=== PATIENT | female | born 1925 | race African-American/Black ===

== ENCOUNTER → 2017-03-11 | Outpatient (CLI) | payer MEDICARE, BC ==
[~2017-03-11] MED LIST: AMLO5TAB4 PO; ATOR20TA65 PO; DRON400T PO; EVIS60 PO; FERR1TAB25 PO; MAGN400C PO; MAGNESIUM OXIDE PO; MG; MULT-1116 PO; SIMV20TA6 PO
[2017-03-11 16:11] LABS: BG BASE EXCESS 4.3 mmol/L (-2.0-2.0); BG CARBOXYHEMOGLOBIN 1.3 % (0.5-1.5); BG DEOXYHEMOGLOBIN 17.9 % (0.0-5.0); BG FRACTION INSPIRED OXYGEN 21; BG HCO3 ACT 28.9 mmol/L (22.0-26.0); BG METHEMOGLOBIN 0.2 % (0.0-1.5); BG OXYGEN SATURATION 81.8 % (92.0-98.5); BG OXYHEMOGLOBIN 80.6 % (94.0-97.0); BG PCO2 42.9 mmHg (35.0-45.0); BG PH 7.446 (7.350-7.450); BG PO2 48.5 mmHg (75.0-100.0); BG SAMPLE SITE RIGHT BRACHIAL; BG TOTAL HEMOGLOBIN 14.4 g/dL (12.0-18.0); BG VENT MODE ROOM AIR
== END | disposition home or self-care (01) ==
LOC: PF 15:15
PROVIDERS: ATTEND Internal Medicine Pulmonary Disease
DX: J44.9 Chronic obstructive pulmonary disease, unspecified (principal)
CPT/HCPCS: 36600; 82375; 82805

== ENCOUNTER 2017-06-05 14:52 | Inpatient (IN) | payer MEDICARE, BC ==
[~2017-06-05] VITALS: Ht 154.9 cm; Wt 41.3 kg
[2017-06-05] MEDS ORDERED: SODIUM CHLORIDE 0.9% 500 ML IV ONE (15:17)
[2017-06-05 16:12] LABS: BASOPHILS % 0.4 % (0.0-2.0); EOSINOPHILS % 0.6 % (0.0-5.0); HEMATOCRIT. 38.9 % (36.0-48.0); HEMOGLOBIN. 12.9 g/dL (12.0-16.0); LYMPHOCYTES % 10.9 % (20.0-50.0); MEAN CORPUSCULAR HEMOGLOBIN 32.3 pg (28.0-32.0); MEAN CORPUSCULAR VOLUME 97.5 fL (81.0-99.0); MEAN PLATELET VOLUME 10.8 fl (7.4-10.4); NEUTROPHILS % 81.1 % (40.0-76.0); PLATELET 91 x1000/uL (130-400); RED BLOOD CELL COUNT 3.99 mill/uL (4.2-5.4); RED CELL DISTRIBUTION WIDTH 14.1 % (11.6-14.6)
[2017-06-05 16:13] LABS: INR 1.1; PARTIAL THROMBOPLASTIN TIME 22.4 sec (23.4-31.0); PROTHROMBIN TIME 11.2 sec (9.4-11.6)
[2017-06-05 16:15] LABS: CHLORIDE 106 mEq/L (98-107)
[2017-06-05 16:21] LABS: CREATINE KINASE 191 IU/L (26-192); TROPONIN I 0.22 ng/mL (0.00-0.04)
[2017-06-05] MEDS ORDERED: ASPIRIN 325MG EC TABLET PO ONE (17:00)
[2017-06-05] MEDS ORDERED: LEVOFLOXACIN 750MG PREMIX 150 ML IV ONE (17:00)
[2017-06-05 17:28] LABS: BG BASE EXCESS 4.4 mmol/L (-2.0-2.0); BG CARBOXYHEMOGLOBIN 0.8 % (0.5-1.5); BG DEOXYHEMOGLOBIN 22.8 % (0.0-5.0); BG FRACTION INSPIRED OXYGEN 28; BG HCO3 ACT 28.9 mmol/L (22.0-26.0); BG METHEMOGLOBIN 0.2 % (0.0-1.5); BG OXYHEMOGLOBIN 76.2 % (94.0-97.0); BG PCO2 42.4 mmHg (35.0-45.0); BG PH 7.451 (7.350-7.450); BG PO2 40.1 mmHg (75.0-100.0); BG SAMPLE SITE RIGHT BRACHIAL; BG TOTAL HEMOGLOBIN 14.8 g/dL (12.0-18.0); BG VENT MODE NASAL CANNULA
[2017-06-05 21:25] VITALS: BP 178/90
[2017-06-05 21:30] VITALS: BP 198/100
[2017-06-05] MEDS ORDERED: POTASSIUM CHLORIDE 20MEQ TABLET SR PO ONE (22:00)
[2017-06-05] MEDS ORDERED: ACETAMINOPHEN 325MG TABLET PO PRN (23:00)
[2017-06-05] MEDS ORDERED: ONDANSETRON HCL 4MG/2ML VIAL IV PRN (23:00)
[2017-06-05] MEDS ORDERED: ZOLPIDEM TARTRATE 5MG TABLET PO PRN (23:00)
[2017-06-05] MEDS: CLONIDINE 0.1MG TABLET PO PRN (23:12)
[2017-06-05] MEDS: METOPROLOL TARTRATE 25MG TABLET PO SCH (23:12)
[2017-06-06] VITALS: BP 172/85
[2017-06-06] MEDS ORDERED: PSYLLIUM SEED PACKET PO PRN (02:00)
[2017-06-06] MEDS ORDERED: CA/D1TAB7 PO (03:13)
[2017-06-06] MEDS ORDERED: ASPI-1159 PO (03:13)
[2017-06-06] MEDS ORDERED: UBID50TA3 PO (03:13)
[2017-06-06] MEDS ORDERED: LOSA25TA12 PO (03:13)
[2017-06-06] MEDS ORDERED: OMEG1CAP94 PO (03:13)
[2017-06-06] MEDS ORDERED: PROM6.25 PO (03:13)
[2017-06-06 04:00] VITALS: BP 119/63
[2017-06-06 08:00] VITALS: BP 172/64
[2017-06-06] MEDS ORDERED: ASPIRIN 81MG TABLET PO SCH (09:00)
[2017-06-06] MEDS: METOPROLOL TARTRATE 25MG TABLET PO SCH ×2 (09:12→22:34)
[2017-06-06] MEDS: ISOSORBIDE MONONITRATE 30MG TABLET SR 24HR PO SCH (09:12)
[2017-06-06 09:16] LABS: CHLORIDE 107 mEq/L (98-107)
[2017-06-06 09:33] LABS: CREATINE KINASE 237 IU/L (26-192); CREATINE KINASE MB FRACTION 11.7 ng/mL (0.5-3.6)
[2017-06-06 12:00] VITALS: BP 132/54
[2017-06-06 16:00] VITALS: BP 119/53
[2017-06-06] MEDS: LEVOFLOXACIN 250MG PREMIX 50 ML IV SCH (17:41)
[2017-06-06 17:52] LABS: CREATINE KINASE MB FRACTION 7.7 ng/mL (0.5-3.6)
[2017-06-06 18:09] LABS: TROPONIN I 1.8 ng/mL (0.00-0.04)
[2017-06-06 20:00] VITALS: BP 148/73
[2017-06-06] MEDS: ATORVASTATIN CALCIUM 10MG TABLET PO SCH (22:34)
[2017-06-07] VITALS: BP 105/69
[2017-06-07 00:40] LABS: CREATINE KINASE MB FRACTION 5.2 ng/mL (0.5-3.6)
[2017-06-07 00:56] LABS: TROPONIN I 1.2 ng/mL (0.00-0.04)
[2017-06-07 04:00] VITALS: BP 131/65
[2017-06-07 07:23] LABS: BASOPHILS % 0.5 % (0.0-2.0); EOSINOPHILS % 2.1 % (0.0-5.0); HEMATOCRIT. 37.6 % (36.0-48.0); HEMOGLOBIN. 12.4 g/dL (12.0-16.0); LYMPHOCYTES % 28.1 % (20.0-50.0); MEAN CORPUSCULAR HEMOGLOBIN 32.5 pg (28.0-32.0); MEAN CORPUSCULAR VOLUME 98.4 fL (81.0-99.0); MEAN PLATELET VOLUME 10.2 fl (7.4-10.4); MONOCYTES % 12.9 % (2.0-8.0); NEUTROPHILS % 56.4 % (40.0-76.0); PLATELET 74 x1000/uL (130-400); RED BLOOD CELL COUNT 3.82 mill/uL (4.2-5.4); RED CELL DISTRIBUTION WIDTH 14.2 % (11.6-14.6)
[2017-06-07 07:53] LABS: CHLORIDE 107 mEq/L (98-107)
[2017-06-07] MEDS ORDERED: GUAIFENESIN/DM 600MG/30MG ER TAB 12HR PO PRN (09:00)
[2017-06-07] MEDS: METOPROLOL TARTRATE 25MG TABLET PO SCH ×2 (09:20→20:06)
[2017-06-07] MEDS: ISOSORBIDE MONONITRATE 30MG TABLET SR 24HR PO SCH (09:25)
[2017-06-07 12:30] VITALS: BP 145/63
[2017-06-07 16:00] VITALS: BP 160/79
[2017-06-07] MEDS: LEVOFLOXACIN 250MG PREMIX 50 ML IV SCH (18:04)
[2017-06-07 20:00] VITALS: BP 191/91
[2017-06-07] MEDS: ATORVASTATIN CALCIUM 10MG TABLET PO SCH (20:04)
[2017-06-07] MEDS: CLONIDINE 0.1MG TABLET PO PRN (20:05)
[2017-06-08] VITALS: BP 148/65
[2017-06-08 04:00] VITALS: BP 146/65
[2017-06-08 07:08] LABS: BASOPHILS % 0.6 % (0.0-2.0); EOSINOPHILS % 2.7 % (0.0-5.0); HEMATOCRIT. 36.5 % (36.0-48.0); HEMOGLOBIN. 12.2 g/dL (12.0-16.0); LYMPHOCYTES % 30.6 % (20.0-50.0); MEAN CORPUSCULAR HEMOGLOBIN 32.5 pg (28.0-32.0); MEAN CORPUSCULAR VOLUME 97.3 fL (81.0-99.0); MEAN PLATELET VOLUME 10.6 fl (7.4-10.4); MONOCYTES % 14.4 % (2.0-8.0); NEUTROPHILS % 51.7 % (40.0-76.0); PLATELET 88 x1000/uL (130-400); RED BLOOD CELL COUNT 3.76 mill/uL (4.2-5.4); RED CELL DISTRIBUTION WIDTH 14.2 % (11.6-14.6)
[2017-06-08 07:15] LABS: CHLORIDE 105 mEq/L (98-107)
[2017-06-08 08:00] VITALS: BP 196/93
[2017-06-08] MEDS: METOPROLOL TARTRATE 25MG TABLET PO SCH ×2 (09:25→20:21)
[2017-06-08] MEDS: ISOSORBIDE MONONITRATE 30MG TABLET SR 24HR PO SCH (09:26)
[2017-06-08] MEDS: AMLODIPINE 5MG TABLET PO SCH ×2 (09:52→20:21)
[2017-06-08 09:55] LABS: TROPONIN I 0.76 ng/mL (0.00-0.04)
[2017-06-08 12:00] VITALS: BP 133/65
[2017-06-08] MEDS: LOSARTAN POTASSIUM 50 MG TABLET PO SCH (15:51)
[2017-06-08 16:00] VITALS: BP 140/80
[2017-06-08] MEDS: LEVOFLOXACIN 250MG PREMIX 50 ML IV SCH (17:31)
[2017-06-08 20:00] VITALS: BP 137/72
[2017-06-08] MEDS: ATORVASTATIN CALCIUM 10MG TABLET PO SCH (20:21)
[2017-06-09] VITALS: BP 168/78
[2017-06-09] MEDS: CLONIDINE 0.1MG TABLET PO PRN (00:29)
[2017-06-09 04:00] VITALS: BP 116/53
[2017-06-09 08:00] VITALS: BP 140/61
[2017-06-09] MEDS: AMLODIPINE 5MG TABLET PO SCH ×2 (09:08→21:53)
[2017-06-09] MEDS: METOPROLOL TARTRATE 25MG TABLET PO SCH ×2 (09:08→21:52)
[2017-06-09] MEDS: ISOSORBIDE MONONITRATE 30MG TABLET SR 24HR PO SCH (09:09)
[2017-06-09] MEDS: LOSARTAN POTASSIUM 50 MG TABLET PO SCH (09:09)
[2017-06-09 12:00] VITALS: BP 105/53
[2017-06-09] MEDS: LEVOFLOXACIN 250MG TABLET PO SCH (12:52)
[2017-06-09 13:03] LABS: CHLORIDE 105 mEq/L (98-107)
[2017-06-09 14:06] LABS: HEMATOCRIT. 36.4 % (36.0-48.0); MEAN CORPUSCULAR VOLUME 96.9 fL (81.0-99.0); MEAN PLATELET VOLUME 11.1 fl (7.4-10.4); PLATELET 103 x1000/uL (130-400); RED BLOOD CELL COUNT 3.76 mill/uL (4.2-5.4)
[2017-06-09 14:31] LABS: PLATELET ESTIMATE DECREASED
[2017-06-09 16:00] VITALS: BP 132/60
[2017-06-09 20:00] VITALS: BP 169/87
[2017-06-09] MEDS ORDERED: IOHEXOL-350 100 ML BOTTLE ONE (20:23)
[2017-06-09] MEDS: ATORVASTATIN CALCIUM 10MG TABLET PO SCH (21:53)
[2017-06-10] VITALS (7 sets, daily range): BP systolic 126–162; BP diastolic 63–76
[2017-06-10] MEDS: ISOSORBIDE MONONITRATE 30MG TABLET SR 24HR PO SCH (09:06)
[2017-06-10] MEDS: ASPIRIN 81MG EC TABLET PO SCH (09:07)
[2017-06-10] MEDS: LOSARTAN POTASSIUM 50 MG TABLET PO SCH (09:07)
[2017-06-10] MEDS: AMLODIPINE 5MG TABLET PO SCH ×2 (09:07→20:38)
[2017-06-10] MEDS: METOPROLOL TARTRATE 25MG TABLET PO SCH ×2 (09:07→20:38)
[2017-06-10] MEDS: LEVOFLOXACIN 250MG TABLET PO SCH (12:24)
[2017-06-10] MEDS: ATORVASTATIN CALCIUM 10MG TABLET PO SCH (20:38)
[2017-06-11] VITALS: BP 152/73
[2017-06-11 04:00] VITALS: BP 153/78
[2017-06-11 07:48] VITALS: BP 145/79
[2017-06-11] MEDS: ASPIRIN 81MG EC TABLET PO SCH (08:52)
[2017-06-11] MEDS: LOSARTAN POTASSIUM 50 MG TABLET PO SCH (08:52)
[2017-06-11] MEDS: METOPROLOL TARTRATE 25MG TABLET PO SCH (08:52)
[2017-06-11] MEDS: ISOSORBIDE MONONITRATE 30MG TABLET SR 24HR PO SCH (08:52)
[2017-06-11] MEDS: AMLODIPINE 5MG TABLET PO SCH (08:53)
[2017-06-11 10:59] VITALS: BP 119/64
[2017-06-11 11:27] VITALS: BP 119/64
[2017-06-11] MEDS: LEVOFLOXACIN 250MG TABLET PO SCH (11:33)
== END 2017-06-11 12:50 | disposition home or self-care (01) | DRG 280 ==
LOC: ER 15:01 → 5WST 17:16 → EDBEDREQ 17:20 → EDBEDREQTM 17:20 → ENRESERV 20:04
PROVIDERS: ADMIT Specialist; ATTEND Specialist
DX: I21.4 Non-ST elevation (NSTEMI) myocardial infarction (principal); J16.8 Pneumonia due to other specified infectious organisms; J96.11 Chronic respiratory failure with hypoxia; D69.6 Thrombocytopenia, unspecified; E87.5 Hyperkalemia; G90.8 Other disorders of autonomic nervous system; I48.0 Paroxysmal atrial fibrillation; J44.0 Chronic obstructive pulmonary disease with (acute) lower respiratory infection; D63.8 Anemia in other chronic diseases classified elsewhere; E03.9 Hypothyroidism, unspecified; I13.10 Hypertensive heart and chronic kidney disease without heart failure, with stage 1 through stage 4 chronic kidney disease, or unspecified chronic kidney disease; I45.10 Unspecified right bundle-branch block; N18.2 Chronic kidney disease, stage 2 (mild); M81.0 Age-related osteoporosis without current pathological fracture; H91.10 Presbycusis, unspecified ear; E78.00 Pure hypercholesterolemia, unspecified; E78.5 Hyperlipidemia, unspecified; I25.10 Atherosclerotic heart disease of native coronary artery without angina pectoris; Z86.73 Personal history of transient ischemic attack (TIA), and cerebral infarction without residual deficits; Z90.49 Acquired absence of other specified parts of digestive tract; Z99.81 Dependence on supplemental oxygen; Z98.41 Cataract extraction status, right eye; Z79.899 Other long term (current) drug therapy; Z98.42 Cataract extraction status, left eye; Z91.013 Allergy to seafood
CPT/HCPCS: 36415; 36600; 70450; 70496; 70498; 71045; 80048; 80053; 82375; 82550; 82553; 82805; 83605; 83690; 83880; 84439; 84443; 84484; 85025; 85610; 85730; 87040; 93005; 93306; 93880; 96361; 96374; 97116; 97162; 99285; J1956; J2405; J7040; J7050; Q9967

== ENCOUNTER → 2017-07-30 | Outpatient (CLI) | payer MEDICARE, BC ==
[~2017-07-30] MED LIST changes: -AMLO5TAB4 PO; +ASPI-1159 PO; +CA/D1TAB7 PO; +LOSA25TA12 PO; -MAGNESIUM OXIDE PO; -MG; +OMEG1CAP94 PO; +PROM6.25 PO; -SIMV20TA6 PO; +UBID50TA3 PO
[2017-07-30 15:07] LABS: BG CARBOXYHEMOGLOBIN 0.8 % (0.5-1.5); BG DEOXYHEMOGLOBIN 3.1 % (0.0-5.0); BG HCO3 ACT 28.3 mmol/L (22.0-26.0); BG OXYHEMOGLOBIN 96.1 % (94.0-97.0); BG PCO2 45.7 mmHg (35.0-45.0); BG PH 7.409 (7.350-7.450); BG PO2 94.8 mmHg (75.0-100.0); BG SAMPLE SITE RIGHT RADIAL; BG TOTAL HEMOGLOBIN 13.2 g/dL (12.0-18.0); BG VENT MODE NASAL CANNULA
== END | disposition home or self-care (01) ==
LOC: PF 14:29
PROVIDERS: ATTEND Internal Medicine
DX: J96.90 Respiratory failure, unspecified, unspecified whether with hypoxia or hypercapnia (principal); J44.9 Chronic obstructive pulmonary disease, unspecified; J84.9 Interstitial pulmonary disease, unspecified
CPT/HCPCS: 36600; 82375; 82805